=== PATIENT | female | born 2000 | race American Indian/Alaskan Native ===

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

== ENCOUNTER 2021-07-20 14:52 | Emergency (ER) | payer SELFPAY ==
[2021-07-20] MEDS ORDERED: ACETAMINOPHEN 325 MG TAB PO ONE (15:26)
--- NOTE | 2021-07-20 15:26 | Emergency Department Report ---
ED Female HPI - General Chief complaint: Abdominal Pain Stated complaint: There is blood in my urine or it is my period Time Seen by Provider: 07/20/21 15:11 Source: patient Mode of arrival: Ambulatory Limitations: No Limitations - History of Present Illness Initial comments: During the history and physical examination I am chaperoned by Francheska Jacob The patient is a 20-year-old female who is nulliparous, presenting to the ER today with a complaint of blood in urination, as well as vaginal bleeding. She has lower abdominal cramping and lower back pain. She does not believe that she is but she is not sure. LMP sometime in May, reports vaginal bleeding started yesterday. Denies additional injuries and complaints. MD Complaint: vaginal bleeding Severity: mild Quality: cramping Consistency: intermittent Improves with: none Worsens with: none - Related Data Previous Rx's Medication Instructions Recorded Last Taken Type Amoxicillin/K Clav Tab [Augmentin 1 tab PO BID #14 tablet 07/27/14 Unknown Rx 875MG] Ibuprofen [Motrin] 400 mg PO Q8H PRN #30 tablet 07/27/14 Unknown Rx Nitrofurantoin [place]/M-Cryst 100 mg PO Q12HR #14 capsule 05/16/16 Unknown Rx [Macrobid CAP] Brompheniramine/Pseudoephed/Dm 5 ml PO Q8H #120 ml 02/20/18 Unknown Rx [Hczvcobqbc-Vixvyfkmjlu-Gd Syr] Chlorhexidine Gluconate [Hibiclens] 10 ml TP BID #240 liquid 03/04/18 Unknown Rx Sulfamethoxazole/Trimethoprim 1 each PO BID #20 tablet 05/25/18 Unknown Rx [Bactrim DS TAB] traMADoL [Ultram 50 MG tab] 50 mg PO Q6HR PRN #20 tablet 05/25/18 Unknown Rx Acetaminophen/Codeine [Tylenol 1 tab PO Q6H PRN #12 tab 06/04/18 Unknown Rx /Codeine # 3 tab] Sulfamethoxazole/Trimethoprim 1 each PO BID #14 tablet 06/04/18 Unknown Rx [Bactrim DS TAB] Ibuprofen [Motrin 400 MG tab] 400 mg PO Q8H PRN #30 tablet 11/20/18 Unknown Rx Allergies Allergy/AdvReac Type Severity Reaction Status Date / Time No Known Allergies Allergy Verified 06/04/18 09:01 ED Review of Systems ROS: Stated complaint: LOWER STOMACH PAIN/LOWER BACK PAIN Other details as noted in HPI Comment: All other systems reviewed and negative Genitourinary: as per HPI, other (Vaginal bleeding, blood in the urine). denies: urgency, dysuria ED Past Medical Hx - Past Medical History Hx Asthma: Yes - Social History Smoking Status: Current Every Day Smoker Substance Use Type: None - Medications Home Medications: Home Medications Medication Instructions Recorded Confirmed Last Taken Type Amoxicillin/K Clav Tab [Augmentin 1 tab PO BID #14 tablet 07/27/14 Unknown Rx 875MG] Ibuprofen [Motrin] 400 mg PO Q8H PRN #30 tablet 07/27/14 Unknown Rx Nitrofurantoin [place]/M-Cryst 100 mg PO Q12HR #14 capsule 05/16/16 Unknown Rx [Macrobid CAP] Brompheniramine/Pseudoephed/Dm 5 ml PO Q8H #120 ml 02/20/18 Unknown Rx [Bprjjfbydm-Xpxuzfmywvd-Iv Syr] Chlorhexidine Gluconate [Hibiclens] 10 ml TP BID #240 liquid 03/04/18 Unknown Rx Sulfamethoxazole/Trimethoprim 1 each PO BID #20 tablet 05/25/18 Unknown Rx [Bactrim DS TAB] traMADoL [Ultram 50 MG tab] 50 mg PO Q6HR PRN #20 tablet 05/25/18 Unknown Rx Acetaminophen/Codeine [Tylenol 1 tab PO Q6H PRN #12 tab 06/04/18 Unknown Rx /Codeine # 3 tab] Sulfamethoxazole/Trimethoprim 1 each PO BID #14 tablet 06/04/18 Unknown Rx [Bactrim DS TAB] Ibuprofen [Motrin 400 MG tab] 400 mg PO Q8H PRN #30 tablet 11/20/18 Unknown Rx ED Physical Exam - General Limitations: No Limitations General appearance: alert, in no apparent distress - Head Head exam: Present: atraumatic, normocephalic - Eye Eye exam: Present: normal appearance, EOMI. Absent: nystagmus - ENT ENT exam: Present: normal exam, normal orophraynx, mucous membranes moist, normal external ear exam - Neck Neck exam: Present: normal inspection, full ROM. Absent: tenderness, meningismus - Respiratory Respiratory exam: Present: normal lung sounds bilaterally. Absent: respiratory distress, wheezes, rales, rhonchi, stridor, decreased breath sounds - Cardiovascular Cardiovascular Exam: Present: regular rate, normal rhythm, normal heart sounds. Absent: bradycardia, tachycardia, irregular rhythm, systolic murmur, diastolic murmur, rubs, gallop - GI/Abdominal GI/Abdominal exam: Present: soft. Absent: distended, tenderness, guarding, rebound, rigid, pulsatile mass - External exam: Present: normal external exam, bleeding, other (Chaperoned by Francheska Jacob). Absent: lesions, lacerations, ecchymosis Speculum exam: Present: normal speculum exam, vaginal bleeding. Absent: erythema, vaginal discharge Bi-manual exam: Present: normal bi-manual exam. Absent: cervical motion tendernes, adnexal tenderness, adnexal mass, uterine enlargement, uterine tenderness - Extremities Exam Extremities exam: Present: normal inspection, full ROM, other (2+ pulses noted in the bilateral upper and lower extremities. There is no palpable cord. negative Homans sign. Muscular compartments are soft. The pelvis is stable.). Absent: pedal edema, calf tenderness - Back Exam Back exam: Present: normal inspection, full ROM. Absent: tenderness, CVA tenderness (R), CVA tenderness (L), paraspinal tenderness, vertebral tenderness - Neurological Exam Neurological exam: Present: alert, oriented X3, normal gait, other (No facial droop. Tongue midline. Extraocular movements intact bilaterally. Facial sensation intact to light touch in V1, V2, V3 distribution bilaterally. 5 and a 5 strength in 4 extremities. Sensation intact to light touch in 4 extremities.). Absent: motor sensory deficit - Psychiatric Psychiatric exam: Present: normal affect, normal mood - Skin Skin exam: Present: warm, dry, intact, normal color. Absent: rash ED Course Vital Signs 07/20/21 15:07 Temperature 98.2 F Pulse Rate 97 H Respiratory 18 Rate Blood Pressure 114/67 [Right] O2 Sat by Pulse 100 Oximetry - Reevaluation(s) Reevaluation #1: 07/20/21 15:58 Differential diagnosis, including but not limited to: Menstruation, , UTI Assessment and plan: 20-year-old female, who is afebrile, with reassuring vital signs, with a soft benign abdomen, without rebound, guarding or peritoneal signs, no dysuria, no irritative or obstructive urinary symptoms, essentially presenting with irregular vaginal bleeding. Pelvic exam benign and unremarkable. Check UA, urine hCG. Treat with Tylenol. Reassess. Discussed with patient. She is agreeable to the plan of care. 07/20/21 16:34 Patient is found to not be . Patient denies irritative or obstructive urinary symptoms. She may follow-up with outpatient primary care, or gynecology ED Medical Decision Making - Lab Data Vital Signs 07/20/21 15:07 Temperature 98.2 F Pulse Rate 97 H Respiratory 18 Rate Blood Pressure 114/67 [Right] O2 Sat by Pulse 100 Oximetry Lab Results 07/20/21 Range/Units 15:50 Urine Color Straw (Yellow) Urine Turbidity Clear (Clear) Urine pH 7.0 (5.0-7.0) Ur Specific [place] 1.009 (1.003-1.030) Urine Protein <15 mg/dl (Negative) mg/dL Urine Glucose (UA) Neg (Negative) mg/dL Urine Ketones Neg (Negative) mg/dL Urine Blood Lg (Negative) Urine Nitrite Neg (Negative) Ur Reducing Substances Not Reportable Urine Bilirubin Neg (Negative) Urine Ictotest Not Reportable Urine Urobilinogen < 2.0 (<2.0) mg/dL Ur Leukocyte Esterase Neg (Negative) Urine WBC (Auto) 1.0 (0.0-6.0) /HPF Urine RBC (Auto) < 1.0 (0.0-6.0) /HPF U Epithel Cells (Auto) 7.0 (0-13.0) /HPF Urine Bacteria (Auto) 1+ (Negative) /HPF Hyaline Casts 2 /LPF Urine HCG, Qual Negative (Negative) Critical care attestation.: If time is entered above; I have spent that time in minutes in the direct care of this critically ill patient, excluding procedure time. ED Disposition Clinical Impression: Negative test, Vaginal bleeding Disposition: HOME / SELF CARE / HOMELESS Is pt being admited?: No Does the pt Need Aspirin: No Condition: Good Instructions: Abdominal Pain (ED), Menstruation Additional Instructions: Patient has a negative urine test today urinalysis not suggestive of urine infection. Patient may follow-up with an outpatient primary care doctor or process coach within the next month for menstruation. Patient may take mqhe-osj-uzyinwi Tylenol and/or Motrin as needed for physical pain. Please return to the emergency room right away with new pain, worsened pain, migration of pain, projectile vomiting, change in mental status, confusion, inability tolerate liquid feeds, new, worsened or different symptoms not present on the initial emergency room evaluation Referrals: PRIMARY CARE, [Primary Care Provider] - 3-5 Days [facility] [Provider Group] - 3-5 Days [facility] [Provider Group] - 3-5 Days Forms: Work/School Release Form(ED)
[2021-07-20 16:14] LABS: HCG Qualitative,Urine Negative (Negative)
[2021-07-20 16:17] LABS: Bacteria,Urine 1+ /HPF (Negative); Bilirubin,Urine NEG (Negative); Blood,Urine LG (Negative); Color,Urine Straw (Yellow); Hyaline Casts,Urine 2 /LPF; Protein,Urine <15 mg/dL mg/dL (Negative); RBC,Urine < 1.0 /HPF (0.0-6.0); Urobilinogen,Urine < 2.0 mg/dL (<2.0)
[2021-07-20 17:46] VITALS: BP 112/69
== END 2021-07-20 17:45 | disposition home or self-care (01) ==
LOC: ED 14:52
DX: N93.9 Abnormal uterine and vaginal bleeding, unspecified (principal); Z32.02 Encounter for pregnancy test, result negative
CPT/HCPCS: 81001; 81025; 99283